=== PATIENT | male | born 1975 | race Hispanic/Latino ===

== ENCOUNTER 2022-01-14 07:10 | Observation (INO) | payer SELFPAY ==
[~2022-01-14] VITALS: Ht 157.5 cm; Wt 95.7 kg
[~2022-01-14 07:10] MED LIST: CENTRUM ADULTS1 EACH PO; IBUPROFEN200 MG PO; SODIUM CHLORIDE 0.9% 500ML 0 ML ONE; TRANEXAMIC ACID 0 ML ONE; Vancomycin IV 500 MG ONE
[2022-01-14] MEDS ORDERED: CELECOXIB 200 MG CAP ONE (07:51)
[2022-01-14] MEDS ORDERED: GABAPENTIN 300 MG CAP ONE (07:51)
[2022-01-14] MEDS ORDERED: ROPIVACAINE 246.25 MG, EPINEPHRINE HCL 1:1000 1ML 0.5 MG, CLONIDINE HCL 0.08 MG, KETORO... INJ ONE ×5 (08:00)
[2022-01-14] MEDS ORDERED: DEXAMETHASONE SOD PHOS 10 MG/1 ML VIAL ONE (08:07)
[2022-01-14] MEDS ORDERED: TRANEXAMIC ACID 20 ML ONE (08:58)
[2022-01-14] MEDS ORDERED: SODIUM CHLORIDE 0.9% 500ML 500 ML ONE (08:58)
[2022-01-14] MEDS ORDERED: Vancomycin IV 500 MG ONE (08:58)
[2022-01-14] MEDS ORDERED: BUPIVACAINE 7.5MG/ML /DEXTROSE 82.5MG/ML 2 ML AMP INJ ONE (08:59)
[2022-01-14] MEDS ORDERED: DOCUSATE SODIUM 100 MG CAP PO PRN (11:30)
[2022-01-14] MEDS ORDERED: KETOROLAC TROMETHAMINE 30 MG/ML VIAL IV PRN (11:30)
[2022-01-14] MEDS ORDERED: HYDROCODONE/APAP 7.5MG-325MG 1 EA TAB PO PRN (11:30)
[2022-01-14] MEDS ORDERED: ACETAMINOPHEN 650 MG SUPP PR PRN (11:30)
[2022-01-14] MEDS ORDERED: HYDROCODONE/APAP 5MG-325MG TAB PO PRN (11:30)
[2022-01-14] MEDS ORDERED: DIPHENHYDRAMINE HCL INJ 50 MG/ML VIAL IV PRN (11:30)
[2022-01-14] MEDS ORDERED: ONDANSETRON HCL INJ 2MG/ML 2ML 2 MG/ML VIAL IV PRN (11:30)
[2022-01-14] MEDS ORDERED: ZOLPIDEM TARTRATE 5 MG TAB PO PRN (11:30)
[2022-01-14] MEDS ORDERED: KETAMINE HCL INJ 50 MG/ML 10 ML VIAL ONE (12:20)
[2022-01-14] MEDS ORDERED: MIDAZOLAM HCL 2 MG/2 ML VIAL ONE (12:20)
[2022-01-14] MEDS ORDERED: FENTANYL CITRATE/PF 100MCG/2 ML INJ ONE (12:20)
[2022-01-14 12:55] VITALS: BP 134/92
[2022-01-14] MEDS ORDERED: LIDOCAINE HCL 2% LOCAL INJ 5 ML SDV VIAL INJ ONE (13:06)
[2022-01-14] MEDS ORDERED: PROPOFOL IV EMULSION 10 MG/ML 20 ML VIAL ONE (13:06)
[2022-01-14] MEDS ORDERED: POVIDONE IODINE 0.05% 0.05 % ML PO ONE (13:06)
[2022-01-14] MEDS ORDERED: ONDANSETRON HCL INJ 2MG/ML 2ML 2 MG/ML VIAL ONE (13:06)
[2022-01-14 13:11] VITALS: BP 134/92
[2022-01-14] MEDS ORDERED: SODIUM CHLORIDE 0.9% 1000ML 1,000 ML IV SCH (13:30)
[2022-01-14 16:00] VITALS: BP 115/63
[2022-01-14] MEDS ORDERED: ASPIRIN 325 MG TAB PO SCH (17:00)
[2022-01-14] MEDS ORDERED: CELECOXIB 200 MG CAP PO SCH (17:00)
[2022-01-15] MEDS ORDERED: ACETAMINOPHEN 1000 MG/100 ML IV PRN (11:30)
== END 2022-01-14 19:05 | disposition home or self-care (01) ==
LOC: OR 07:10 → PACU V 11:21 → MED/SURG 13:04
PROVIDERS: ADMIT Specialist; ATTEND Specialist
DX: M16.11 Unilateral primary osteoarthritis, right hip (principal)
CPT/HCPCS: 0223U; 27447; 36415; 72170; 86850; 86900; 86920; 94799; 97110; 97116; 97162; 97530 ×2; C1713 ×3; C1776 ×2; G0378; J0171; J0690; J1100; J1885; J2001; J2250; J2405; J2704; J2795; J3010; J3370; J7030; J7040